=== PATIENT | male | born 1995 | race Caucasian/White ===

== ENCOUNTER 2018-03-20 19:57 | Emergency (ER) | payer MEDICAID ==
[~2018-03-20] VITALS: Ht 190.5 cm; Wt 95.3 kg
[2018-03-20 20:31] VITALS: BP 131/78
== END 2018-03-21 02:00 | disposition left against medical advice (07) ==
LOC: ER 19:57
DX: L08.89 Other specified local infections of the skin and subcutaneous tissue (principal); Z53.21 Procedure and treatment not carried out due to patient leaving prior to being seen by health care provider